=== PATIENT | female | born 1940 | race Caucasian/White ===

== ENCOUNTER 2017-05-26 06:36 | Day surgery (SDC) | payer MEDICARE, BC ==
[2017-05-26] MEDS ORDERED: Lactated Ringers 1,000 ML IV SCH (07:15)
[2017-05-26] MEDS ORDERED: Midazolam 1 MG/ML 2 ML SDV IV ONE (08:00)
[2017-05-26] MEDS ORDERED: Propofol 200 MG/20 ML SDV IV ONE (08:00)
[2017-05-26] MEDS ORDERED: Ondansetron 4 MG/2 ML SDV IVPUSH ONE (08:00)
--- NOTE | 2017-05-26 08:27 | PCM.OPNOTE ---
- General Post-Op/Procedure Note Date of Surgery/Procedure: 05/26/17 Operative Procedure(s): c scope Findings: sigmoid diverticulosis Pre Op Diagnosis: +FIT Post-Op Diagnosis: sigmoid diverticulosis Anesthesia Technique: MAC Primary Surgeon: Eugene Mattson Anesthesia Provider: Mya Luna Pathology: none Complications: None Condition: Good Free Text/Narrative:: see dictation
--- NOTE | 2017-05-26 09:01 | PCM.OPNOTE ---
- General Post-Op/Procedure Note Date of Surgery/Procedure: 05/26/17 Operative Procedure(s): c scope with bx Findings: cecal polyp int hemorrhoids Pre Op Diagnosis: brbpr Post-Op Diagnosis: cecal polyp. int hemorrhoids Anesthesia Technique: MAC Primary Surgeon: Eugene Mattson Anesthesia Provider: Mya Luna Pathology: cecal polyp Complications: None Condition: Good Free Text/Narrative:: see dictation
--- NOTE | 2017-05-26 10:56 | OR ---
DATE OF OPERATION: 05/26/2017 SURGEON: Eugene Mattson MD PROCEDURE PERFORMED: Colonoscopy. PREOPERATIVE DIAGNOSIS: Positive FIT. POSTOPERATIVE DIAGNOSIS: Sigmoid diverticulosis. INDICATIONS FOR PROCEDURE: This is a 76-year-old white female who is referred with the above-mentioned complaints. She was offered and accepted colonoscopy as part of her workup. DESCRIPTION OF PROCEDURE: After an excellent IV sedation was administered, digital rectal exam was performed. No marked abnormality was noted. Flexible colonoscope was inserted and advanced to the cecum without difficulty. The prep was excellent. The following findings were noted. Ascending colon, unremarkable. Transverse colon, unremarkable. Descending colon, unremarkable. Sigmoid, scattered diverticula. Rectum and anus unremarkable. There was no finding of any mucosal abnormality such as polyps or masses to explain a positive FIT exam. The patient tolerated procedure well, and was taken to recovery. /[id number] [address]
== END 2017-05-26 09:48 | disposition home or self-care (01) ==
LOC: FB.SDS 06:36
PROVIDERS: ATTEND Surgery
DX: K57.30 Diverticulosis of large intestine without perforation or abscess without bleeding (principal); E66.9 Obesity, unspecified; L98.9 Disorder of the skin and subcutaneous tissue, unspecified; Z85.3 Personal history of malignant neoplasm of breast; Z79.899 Other long term (current) drug therapy; Z88.1 Allergy status to other antibiotic agents; Z68.30 Body mass index [BMI] 30.0-30.9, adult; Z98.890 Other specified postprocedural states; Z87.891 Personal history of nicotine dependence
CPT/HCPCS: 00811; 45378; J2250; J2405; J2704; J7120